=== PATIENT | female | born 1985 | race Two or more races ===

== ENCOUNTER 2020-02-29 09:21 | Emergency (ER) | payer OTHER ==
[~2020-02-29] VITALS: Ht 160 cm; Wt 106.1 kg
--- NOTE | 2020-02-29 09:40 | NUR ---
BIB SELF C/O LT FLANK PAIN, COVID +. VS CHECKED. AWAITING MD RIVERA
[2020-02-29] MEDS ORDERED: HYDROCODONE/APAP 10/325MG TABLET PO ONE (10:00)
[2020-02-29] MEDS ORDERED: HYDROCODONE/APAP 10/325MG TABLET ONE (10:19)
[2020-02-29 10:54] LABS: BILIRUBIN,URINE NEGATIVE (NEGATIVE); BLOOD, URINE SMALL Ery/uL (NEGATIVE); COLOR,URINE YELLOW (YELLOW); LEUKOCYTE ESTERASE ,URINE NEGATIVE (NEGATIVE); NITRITE, URINE NEGATIVE (NEGATIVE); PROTEIN,URINE 100 mg/dl (NEGATIVE); UGLUCOSE >=1000 mg/dL (NEGATIVE); UROBILINOGEN,URINE 0.2 EU/dL (0.2)
[2020-02-29 11:11] LABS: BACTERIA,URINE Rare /HPF (None Seen); RBC,URINE 0-3 /HPF (0-2); SQUAMOUS EPITHELIAL CELL,UR Few /HPF (None Seen); WBC,URINE 0-2 /HPF (0-3)
[2020-02-29 11:51] VITALS: BP 145/81
--- NOTE | 2020-02-29 11:51 | NUR ---
Patient discharged to home in stable condition. Written and verbal after care instructions given. Patient verbalizes understanding of instruction.IV removed. Catheter intact and site benign. Pressure and 4x4 applied to site. No bleeding noted.
== END 2020-02-29 11:51 | disposition home or self-care (01) ==
LOC: ER 09:23
DX: R10.9 Unspecified abdominal pain (principal); U07.1 COVID-19; E10.9 Type 1 diabetes mellitus without complications
CPT/HCPCS: 71045-TC; 81001; 84703-TC